=== PATIENT | male | born 1950 | race Hispanic/Latino ===

== ENCOUNTER 2018-09-08 07:12 | Outpatient (CLI) | payer MEDICARE ==
[2018-09-08 08:17] LABS: Estimated GFR-MDRD - POC Greater than 90
[2018-09-08] MEDS ORDERED: Gadobenate Dimeglumine 529 MG/1 ML (20ML VIAL) ONE (10:52)
--- NOTE | 2018-09-09 09:44 | MRI ---
MRI OF THE ABDOMEN WITH AND WITHOUT IV CONTRAST: INDICATION: Abnormal liver function tests with occasional abdominal pain. TECHNIQUE: Multiplanar, multisequence MR images were obtained of the abdomen utilizing a liver mass protocol. 1 6 cc of MultiHance were utilized for the examination. Comparisons are made with the prior CT of the abdomen and pelvis performed at [facility] dated 01/30/2013 and a prior MRI of the abdomen wi th and without contrast from [facility] dated 03/03/2013. FINDINGS: Again seen is a cirrhotic morphology of the liver. There is worsening splenomegaly to 24 cm in its g reatest craniocaudad length. There is worsening ascites seen throughout the abdominal cavity. There is recanalization of the umbilical vein. No suspicious arterial enhancing lesion is seen within the liver to suggest the presence of a malignancy. There is an eccentric focal filling defect seen with in the main portal vein on the delayed phase images on image 2034 of series 2, image 3034 of series 1 2 suspicious for partial portal vein thrombosis. There is a new small subcentimeter T2 hyperintensit y seen within he pancreatic head without associated enhancement suggestive for a small cyst. There a re small cysts seen within both kidneys. There are splenic, perisplenic, upper retroperitoneal, and periesophageal varicosities present. No bone marrow signal abnormality is evident. IMPRESSION: 1. Findings of cirrhosis with worsening portal hypertension and ascites. 2. There is a new focal filling defect seen within the main portal vein suspicious for a small eccen tric partial portal vein thrombus. 3. Bilateral renal cysts. 4. Interval development of a small T2 hyperintensity involving the pancreatic head without appreciab le enhancement suspicious for a small pancreatic cyst. 5. Heterogeneous enhancement seen within the retroperitoneum and portions of the omentum and paraeso phageal region suspicious for worsening portal hypertension and development of collateral venous drai nage. No large amount of abnormal T2 signal is seen within this region to suggest retroperitoneal ed taran from an gentility such as pancreatitis. POS: [facility]
== END 2018-09-08 07:13 | disposition home or self-care (01) ==
LOC: BICMRI 07:12
DX: R79.89 Other specified abnormal findings of blood chemistry (principal); K74.60 Unspecified cirrhosis of liver; K76.6 Portal hypertension; R18.8 Other ascites; N28.1 Cyst of kidney, acquired; R93.3 Abnormal findings on diagnostic imaging of other parts of digestive tract
CPT/HCPCS: 74183; 82565; A9579

== ENCOUNTER 2019-07-20 20:55 | Emergency (ER) | payer MEDICARE, OTHER ==
[~2019-07-20 20:55] MED LIST: ISOVUE-370 76%-LOCM 1 ML ONE
[2019-07-20 21:39] LABS: #Lymphocytes 0.4 thou/uL (1.20-3.40); #Monocytes 0.4 thou/uL (0.11-0.59); #Neutrophils 4.2 thou/uL (1.40-6.50); %Basophils 0.2 % (0.0-1.0); %Eosinophils 0.8 % (0.0-10.0); %Lymphocytes 8.6 % (21.0-51.0); %Monocytes 8.2 % (0.0-10.0); %Neutrophils 82.1 % (42.0-75.0); Hemoglobin 11.6 g/dL (14.0-18.0); Mean Corpuscular HGB CONC 34.5 g/dL (32.0-36.0); Mean Corpuscular Hemoglobin 34.1 pg (27.0-31.0); Mean Corpuscular Volume 98.7 fL (78.0-98.0); Platelet Count 41 thou/uL (130-400); RBC Distribution Width 13.5 % (11.5-14.5); Red Blood Cell (RBC) Count 3.42 mill/uL (4.70-6.10); White Blood Cell (WBC) Count 5.1 thou/uL (4.8-10.8)
[2019-07-20 21:42] LABS: INR-International Normal Ratio 1.6; PTT 33.5 SEC (22.9-36.1); Prothrombin Time 18.5 SEC (12.0-14.7)
[2019-07-20] MEDS ORDERED: Lidocaine 1% w/Epinephrine 1:100K 20 ML VIAL ONE (21:49)
[2019-07-20 21:50] LABS: Bilirubin Negative (Negative); Blood, Urine Negative (Negative); Clarity Clear (Clear); Glucose, Urine (Dipstick) Normal (Negative); Leukocyte Negative Leu/uL (Negative); Nitrite Negative (Negative); Protein, Urine (Dipstick) 20 mg/dL (Neg-Trace)
[2019-07-20] MEDS ORDERED: cefTRIAXone\\ROCEPHIN 1 GM VIAL ONE (21:51)
[2019-07-20 21:58] LABS: ALT (SGPT) 26 U/L (8-55); AST (SGOT) 49 U/L (5-34); Albumin 2.5 g/dL (3.4-4.8); Alkaline Phosphatase 177 U/L (40-110); Anion Gap 10 mmol/L (10-20); BUN (Urea Nitrogen) 26 mg/dL (8.4-25.7); Bilirubin, Total 1.7 mg/dL (0.2-1.2); Calc. Creatinine Clearance 0 mL/min (70-130); Calcium 7.7 mg/dL (7.8-10.44); Carbon Dioxide 20 mmol/L (23-31); Chloride 106 mmol/L (98-107); Estimated GFR-MDRD 83; Globulin 2.7 g/dL (2.4-3.5); Glucose 111 mg/dL (80-115); Potassium 3.5 mmol/L (3.5-5.1); Protein, Total 5.2 g/dL (5.8-8.1); Sodium 132 mmol/L (136-145)
--- NOTE | 2019-07-20 22:00 | RAD ---
Exam: Chest one view HISTORY:Chest pain Comparison: 10/05/2015 FINDINGS: Lungs: Hypoinflated, with the shallow depth of inspiration limiting assessment Cardiac silhouette:Accentuated by shallow depth of inspiration and portable technique Pulmonary vessels: Prominent pulmonary vasculature Pleural Spaces: Clear Pneumothorax: None Osseous abnormalities: None of acuity. IMPRESSION: Prominent pulmonary vasculature which may be on the basis of fluid overload. Correlate cl inically.
--- NOTE | 2019-07-20 22:33 | CT ---
CT Brain WO Con: 07/20/2019 12:00 AM CLINICAL HISTORY: Altered mental status. COMPARISON: None. FINDINGS: Hemorrhage: None. Ventricular system: Normal in size and morphology for the patient's age. Cerebral parenchyma: Microvascular ischemic disease Midline shift: None. Mass: No mass effect. Calvarium: Normal. Visualized Paranasal sinuses: Clear. IMPRESSION: No acute intracranial abnormalities.
--- NOTE | 2019-07-20 22:41 | CT ---
EXAM: Abdomen and pelvic CT scan with contrast: HISTORY: Abdominal pain. Recent paracentesis COMPARISON: 01/30/2013 FINDINGS: Scattered volume loss and/or scarring of the imaged lung bases. Liver: Cirrhotic morphology Gallbladder: Layering cholelithiasis. Gallbladder wall prominence and hyperdensity. Pancreas: Unremarkable Spleen: There is splenomegaly. Adjacent the splenic hilum, there is abnormal hyperdensity which exten ds from splenic varices and tracks along the posterior splenic margin and there is additional perisplenic fluid. Given the high density and configuration, this is concerning for active bleeding, the exact source of which is difficult to discern. There is splenomegaly. Splenic varices are noted, indicating portal hypertension. Adrenal glands: Left adrenal gland is obscured by the above-described perisplenic hyperdensity. Right adrenal gland is unremarkable. Kidneys: Parenchymal hypodensity of the left kidney, anteriorly, too small to definitively characteri ze. No hydronephrosis. Bowel: There is diffuse wall prominence of the bowel which may be on the basis of a hypoproteinemic s alba due to cirrhosis. However, superimposed acute infectious/inflammatory or ischemic process cannot be excluded on the basis of this exam. Urinary Bladder: Decompressed, limiting assessment. Adenopathy: There are enlarged gastrohepatic and portacaval lymph nodes Free Air: No free air. Ascites: Moderate volume diffuse ascites of the abdomen and pelvis. Generalized subcutaneous edema. Osseous structures: No acute osseous abnormalities. IMPRESSION: Abnormal hyperdensity extending from the region of the vasculature of the left abdomen adjacent splen ic varices within the left upper quadrant, and tracking along the posterior margin of the spleen. Active bleeding, the source of which is not definitively discerned, is the diagnosis of exclusion. Cirrhosis and portal hypertension Cholelithiasis Diffuse bowel wall prominence, as above. Telephone call placed to patient's physician in the ER, Dr. Baeza, at 2230 hours. Transcribed Date/Time: 07/20/2019 11:40 PM
[2019-07-20] MEDS ORDERED: Octreotide Acetate 1,250 MCG in Sodium Chloride 0.9% 250 ML 250 ML IVPB SCH (23:15)
--- NOTE | 2019-07-22 13:22 | EKG ---
Test Reason : Blood Pressure : / mmHG Vent. Rate : 098 BPM Atrial Rate : 098 BPM P-R Int : 170 ms QRS Dur : 080 ms QT Int : 400 ms P-R-T Axes : 026 -07 033 degrees QTc Int : 510 ms Normal sinus rhythm Possible Lateral infarct , age undetermined Prolonged QT Abnormal ECG Confirmed by LISA KC ([id number]), makeup editor CASEY MARRERO ([id number]) on 07/22/2019 1:22:15 PM Referred By: Confirmed By:LISA KC
== END 2019-07-21 00:23 | disposition short-term general hospital (02) ==
LOC: ERS 20:55
DX: K91.870 Postprocedural hematoma of a digestive system organ or structure following a digestive system procedure (principal); K72.90 Hepatic failure, unspecified without coma; I83.90 Asymptomatic varicose veins of unspecified lower extremity; E11.9 Type 2 diabetes mellitus without complications; E78.5 Hyperlipidemia, unspecified; E78.00 Pure hypercholesterolemia, unspecified; I10 Essential (primary) hypertension; N40.0 Benign prostatic hyperplasia without lower urinary tract symptoms; Z79.899 Other long term (current) drug therapy
CPT/HCPCS: 36415; 51701; 70450; 71045; 74177; 80053; 81003; 82140; 83605; 84484; 85025; 85610; 85730; 86850; 86900; 86901; 87040; 87086; 93005; 96365; 96375; J0696; J2354; J7050; Q9966

== ENCOUNTER 2020-01-07 02:33 | Inpatient (IN) | payer MEDICARE, OTHER ==
[~2020-01-07 02:33] MED LIST changes: +Furosemide 40 MG TAB ONE; +Furosemide 40 MG/4 ML VIAL ONE; -ISOVUE-370 76%-LOCM 1 ML ONE
[2020-01-07 03:09] LABS: #Eosinphils 0.2 thou/uL (0.0-0.7); #Lymphocytes 0.6 thou/uL (1.20-3.40); #Monocytes 0.6 thou/uL (0.11-0.59); #Neutrophils 4.2 thou/uL (1.40-6.50); %Basophils 0.5 % (0.0-1.0); %Eosinophils 3.9 % (0.0-10.0); %Lymphocytes 10.2 % (21.0-51.0); %Monocytes 10.2 % (0.0-10.0); %Neutrophils 75.2 % (42.0-75.0); Hemoglobin 12.5 g/dL (14.0-18.0); Mean Corpuscular HGB CONC 34.3 g/dL (32.0-36.0); Mean Corpuscular Hemoglobin 35.2 pg (27.0-31.0); Mean Platelet Volume 9.7 fL (7.4-10.4); Platelet Count 40 thou/uL (130-400); RBC Distribution Width 14.2 % (11.5-14.5); Red Blood Cell (RBC) Count 3.56 mill/uL (4.70-6.10); White Blood Cell (WBC) Count 5.6 thou/uL (4.8-10.8)
[2020-01-07 03:14] LABS: Actual Bicarbonate (HCO3a) 17.9 mEq/L (22-28); Analyzer IN Cardio ER; Base Excess (BEa) -5.4 mEq/L (-2.0 to +3.0); CO2 Tension 28.6 mmHg (35.0-45.0); Calcium, Ionized 1.13 mmol/L (1.12-1.30); Carboxyhemoglobin (COHb) 0.2 gm% (0.0-3.0); O2 Tension (PaO2) 73.3 mmHg (> 80.0); Potassium - ABG Lab 3.68 mmol/L (3.70-5.30); pH, Arterial 7.41 (7.35-7.45)
[2020-01-07 03:14] LABS: INR-International Normal Ratio 1.4; Prothrombin Time 17.3 SEC (12.0-14.7)
[2020-01-07 03:15] LABS: Puncture Site LBA
[2020-01-07] MEDS ORDERED: Cefepime 2 GM VIAL ONE (03:26)
[2020-01-07 03:29] LABS: ALT (SGPT) 30 U/L (8-55); AST (SGOT) 69 U/L (5-34); Albumin 2.4 g/dL (3.4-4.8); Alkaline Phosphatase 165 U/L (40-110); Anion Gap 12 mmol/L (10-20); BUN (Urea Nitrogen) 25 mg/dL (8.4-25.7); Bilirubin, Total 1.9 mg/dL (0.2-1.2); Calc. Creatinine Clearance 0 mL/min (70-130); Calcium 7.9 mg/dL (7.8-10.44); Carbon Dioxide 19 mmol/L (23-31); Chloride 111 mmol/L (98-107); Estimated GFR-MDRD Greater than 90; Globulin 3.2 g/dL (2.4-3.5); Glucose 103 mg/dL (80-115); Lipase 79 U/L (8-78); Potassium 3.8 mmol/L (3.5-5.1); Protein, Total 5.6 g/dL (5.8-8.1); Sodium 138 mmol/L (136-145)
[2020-01-07] MEDS ORDERED: Cefepime 2 GM in Sodium Chloride 0.9% 100 ML IVPB SCH (03:30)
[2020-01-07] MEDS ORDERED: Vancomycin HCl 1.75 GM in Sodium Chloride 0.9% 500 ML IVPB SCH (03:30)
[2020-01-07 03:42] LABS: Bacteria/HPF None Seen HPF (None Seen); Bilirubin Negative (Negative); Blood, Urine Negative (Negative); Clarity Clear (Clear); Glucose, Urine (Dipstick) Normal (Negative); Leukocyte 25 Leu/uL (Negative); Nitrite Negative (Negative); Protein, Urine (Dipstick) Negative (Neg-Trace); RBC/HPF 0-3 HPF (0-3); Squamous Epithelial None Seen HPF (0-3); Urobilinogen Normal mg/dL (Less than 2); WBC/HPF 0-3 HPF (0-3)
[2020-01-07] MEDS ORDERED: Ondansetron PF 4 MG/2 ML Vial IVP PRN ×2 (04:18→08:31)
[2020-01-07] MEDS ORDERED: cefTRIAXone\\ROCEPHIN 1 GM in Sodium Chloride 0.9% 100 ML IVPB SCH ×2 (05:00→08:45)
--- NOTE | 2020-01-07 05:26 | HP ---
CHIEF COMPLAINT: Shortness of breath. HISTORY OF PRESENT ILLNESS: Mr. Booth is a 69-year-old male with past medical history of liver cirrhosis, presented to the emergency room with shortness of breath that got worse today. The patient had also recent weight gain, significant. Also, he noted swelling and edema of abdomen and extremities. Denies fever or chills. Initial workup in the emergency room, the patient was in respiratory distress, chest x-ray shows right hemithorax opacity/pleural effusion. Also, clinically, the patient has significant ascites. CT imaging of the abdomen and chest is being done at the time of this dictation. Results are still pending. The patient is going to be admitted to the hospital for further management. PAST MEDICAL HISTORY: 1. Liver cirrhosis. 2. Diabetes, type 2. 3. Hyperlipidemia. 4. Hypertension. 5. Enlarged prostate. PAST SURGICAL HISTORY: Hernia repair. PAST PSYCHIATRIC HISTORY: None. SOCIAL HISTORY: Denies alcohol use. The patient denies drug use. Denies smoking. FAMILY HISTORY: Reviewed and noncontributory. HOME MEDICATIONS: Please see home medication reconciliation form for updated medications. ALLERGIES: NO KNOWN ALLERGIES. REVIEW OF SYSTEMS: Review of 14 systems negative except what is mentioned in history of present illness. PHYSICAL EXAMINATION: GENERAL: The patient is awake, alert, in moderate respiratory distress. VITAL SIGNS: Blood pressure is 115/70, pulse is 116, respiratory rate is 28, temperature is 98.2, and oxygen saturation is 99% on 3 L/minute nasal cannula. HEAD AND NECK: Normocephalic, atraumatic. Neck is supple. No JVD. CHEST: Decreased air entry. Right chest with dullness to percussion. HEART: S1, S2. Regular. ABDOMEN: Soft, diffusely tender with shifting dullness. Positive bowel sounds present. NEUROLOGIC: Awake, alert, oriented x3. PSYCH: Unable to assess. EXTREMITIES: Positive for edema. No clubbing, no cyanosis. GENITOURINARY: No suprapubic tenderness. No flank tenderness. LABORATORY DATA: Lipase is 79. Sodium is 138, potassium is 3.8, bilirubin is 1.9, albumin 2.4. Alkaline phosphatase 165, AST is 69, ALT is 30. Lactic acid is 1.7. Ammonia is 42. INR is 1.4. ABG; pH 7.41, PaCO2 is 28, PaO2 is 73. WBC count 5.6, hemoglobin 12.5, platelets 140. ASSESSMENT: 1. Acute dyspnea, probably secondary to ascites and pleural effusion. 2. Ascites. 3. Pleural effusion, right-sided. 4. Liver cirrhosis. 5. Diabetes mellitus, type 2. 6. Hypertension. 7. Hyperlipidemia. PLAN: 1. Admit. 2. CT abdomen and chest being done, to follow the results. 3. Consult Interventional Radiology for ultrasound guided paracentesis. 4. Consider also Pulmonary consultation for chest x-ray findings. The patient also may need thoracentesis. 5. The patient was given IV Lasix, we will continue diuresis. 6. Reconcile home medications. 7. DVT prophylaxis as appropriate. 8. Expected length of stay, 2 midnights or more. Job ID: [id number]
[2020-01-07 05:29] VITALS: BMI 31.4
[2020-01-07] MEDS ORDERED: Spironolactone 100 MG TAB PO SCH ×2 (08:00→08:45)
--- NOTE | 2020-01-07 08:00 | CT ---
PRELIMINARY REPORT/[facility]/EMERGENCY AFTER HOURS PROCEDURE: History: SOB, history of cirrhosis and weight gain. CT chest, abdomen and pelvis with 100 cc Isovue-370 IV contrast. Comparison: None. Findings: The thoracic aorta is intact without aneurysm or dissection. The heart is not significantl y enlarged. Small pericardial effusion. Marked bilateral gynecomastia. There is a very large right-sided pleural effusion with near complete atelectasis of the right lung. Patchy groundglass airspace opacities seen in the left upper lobe. Small cirrhotic liver. The portal vein is distended. The spleen is enlarged. There is a linear hyp odensity in the inferior spleen extending to the capsular surface measuring about 2.8 cm in length. Layering calcified gallstones. The pancreas, adrenal glands and kidneys are unremarkable. There may be small gastroesophageal varices. The stomach is otherwise unremarkable. Mild mural thic kening of loops of small bowel which are minimally distended. No evidence of small bowel obstruction. The appendix is not inflamed. There is mild mural thickening of the ascending colon. Perirectal varices are noted. Large volume ascites. No free air. The prostate is moderately enlarged. The bladder is unremarkable. The abdominal aorta is intact. O steopenia with degenerative changes of the spine and SI joints. Diffuse subcutaneous anasarca, more pronounced on the right. L5 pars defects with anterolisthesis of L5 on S1. Impression: 1. Cirrhotic changes of the liver with sequelae of portal hypertension including splenomegaly, ascit es, portosystemic varices and subcutaneous anasarca. 2. Very large right pleural effusion consistent with hepatic hydrothorax. Near complete atelectasis of the right lung. 3. Patchy groundglass airspace disease in the left upper lobe is nonspecific but could be infectious in the appropriate clinical setting. 4. Cholelithiasis. 5. 2.8 cm linear hypodensity in the inferior spleen. If there is a history of trauma, process such as a small laceration of indeterminate age is not excluded. 6. Chronic findings as above. ELECTRONICALLY SIGNED BY: Osman Wyatt MD Jan 07, 2020 5:19:23 AM CDT FINAL REPORT CT CHEST WITH IV CONTRAST CT ABDOMEN AND PELVIS WITH IV CONTRAST: DATE: 01/07/2020. TIME: Performed on an emergency basis at 0403 hours. HISTORY: Dyspnea. Chest and abdomen pain. COMPARISON: 07/20/2019. FINDINGS: Agree with the preliminary report by Dr. Wyatt from [facility]. Large amount right pleural flui d with near complete collapse of the right lung. Slight leftward shift of the mediastinum. Cirrhosis with findings of portal venous hypertension. The ill-defined area of increased density to t he medial aspect of the upper spleen is unchanged in appearance and is of uncertain etiology. A new somewhat ill-defined linear, coronally oriented hypodensity across the inferior margin of the spleen was not present on the prior study. In the appropriate clinical setting, it could represent a laceration, although the clinical history does not well correlate for such. Cholelithiasis confirmed. Transcribed Date/Time: 01/07/2020 8:31 AM
[2020-01-07] MEDS: Famotidine/PF 20 mg/2ml Vial SLOW IVP SCH ×2 (08:48→20:09)
[2020-01-07] MEDS: Furosemide 40 MG/4 ML VIAL SLOW IVP SCH (08:48)
[2020-01-07] MEDS ORDERED: Famotidine/PF 20 mg/2ml Vial SLOW IVP SCH (09:00)
[2020-01-07] MEDS ORDERED: Furosemide 40 MG/4 ML VIAL SLOW IVP SCH (09:00)
--- NOTE | 2020-01-07 09:14 | RAD ---
PORTABLE CHEST: DATE: 01/07/2020. PROVIDED CLINICAL HISTORY: Shortness of breath. FINDINGS: Comparison 07/20/2019. Interval development of opacification of essentially the entire right hemitho rax with some aerated lung involving the right upper lung zone present. The left lung appears clear. There is no shift of the mediastinal contents. There is no evidence for pneumothorax. Heart size appears grossly normal. IMPRESSION: Opacification of the majority of the right hemithorax. Correlate with subsequently performed CT exam ination. POS: [facility]
--- NOTE | 2020-01-07 11:39 | RAD ---
Chest one view HISTORY: Chest pain. Dyspnea. Thoracentesis. COMPARISON: Earlier exam on the same date. FINDINGS: Right pleural fluid has markedly decreased, consistent with interval thoracentesis. Right l ower lobe remains incompletely inflated. Mediastinum is now midline. Left lung well-inflated. Cardiac silhouette and pulmonary vasculature are unremarkable. IMPRESSION : Interval right thoracentesis with near complete reexpansion of the right lower lobe. No evidence of c omplication.
--- NOTE | 2020-01-07 12:19 | ULT ---
Sonographic guided right thoracentesis HISTORY: Pleural effusion. FINDINGS: After explaining the procedure and answering all questions, sonographic survey shows a larg e amount of free fluid within the right hemithorax. Sterile technique, local anesthesia, sonographic guidance, and a posterior approach were used to care fully advance a 19-gauge Yueh needle and catheter into the free fluid. Catheter was left to drain a total volume of 3.0 L cloudy yellow liquid. Small amount of fluid remained. Catheter was removed. Pat ient tolerated the procedure well. IMPRESSION : Technically successful sonographic guided right thoracentesis.
[2020-01-07] MEDS ORDERED: Iopamidol 370 76% 50 ML VIAL FS ONE (13:27)
--- NOTE | 2020-01-07 13:29 | PDOC.HOSPP ---
- Subjective Encounter Date: 01/07/20 Encounter Time: 10:45 Subjective: is confused, sob+ - Objective Vital Signs & Weight: Vital Signs (12 hours) Temp Pulse Resp BP BP Pulse Ox 01/07/20 12:00 97.7 F 94 18 120/70 100 01/07/20 08:00 100 01/07/20 07:22 97.7 F 108 H 20 103/67 100 01/07/20 05:42 100 01/07/20 05:18 97.7 F 104 H 22 H 132/73 100 Weight Weight 195 lb Result Diagrams: 01/07/20 02:46 01/07/20 02:46 Hospitalist ROS - Medication Medications: Active Medications Generic Name Dose Route Start Last Admin Trade Name Freq PRN Reason Stop Dose Admin Famotidine 20 mg 01/07/20 09:00 01/07/20 08:48 Pepcid SLOW IVP 20 mg Q12HR QUETA Administration Furosemide 40 mg 01/07/20 09:00 01/07/20 08:48 Lasix SLOW IVP 40 mg DAILY QUETA Administration - Exam General Appearance: ill appearing Eye: PERRL, scleral icterus ENT: no oropharyngeal lesions, dry oral mucosa Neck: supple, no JVD Heart: RRR, no gallops Respiratory: no wheezes, no rales Respiratory - other findings: very little air entry on right side Gastrointestinal: soft, normal bowel sounds, distended Gastrointestinal - other findings: ascites+++ Extremities: no cyanosis, 2+ LE edema Neurological: cranial nerve grossly intact, no focal deficits Hosp A/P (1) Pleural effusion, right Code(s): J90 - PLEURAL EFFUSION, NOT ELSEWHERE CLASSIFIED Status: Acute (2) Ascites Code(s): R18.8 - OTHER ASCITES Status: Chronic Qualifiers: Ascites type: other type Qualified Code(s): R18.8 - Other ascites (3) Acute hepatic encephalopathy Code(s): K72.00 - ACUTE AND SUBACUTE HEPATIC FAILURE WITHOUT COMA Status: Acute (4) DM type 2 (diabetes mellitus, type 2) Status: Chronic Qualifiers: Diabetes mellitus exterminator termite insulin use: without exterminator termite use (5) Non-alcoholic cirrhosis Status: Chronic (6) BPH (benign prostatic hyperplasia) Code(s): N40.0 - BENIGN PROSTATIC HYPERPLASIA WITHOUT LOWER URINRY TRACT SYMP Status: Chronic Qualifiers: Lower urinary tract symptom presence: symptoms absent Qualified Code(s): N40.0 - Benign prostatic hyperplasia without lower urinary tract symptoms (7) HLD (hyperlipidemia) Code(s): E78.5 - HYPERLIPIDEMIA, UNSPECIFIED Status: Chronic Qualifiers: Hyperlipidemia type: unspecified Qualified Code(s): E78.5 - Hyperlipidemia , unspecified (8) HTN (hypertension) Code(s): I10 - ESSENTIAL (PRIMARY) HYPERTENSION Status: Chronic Qualifiers: Hypertension type: essential hypertension Qualified Code(s): I10 - Essential (primary) hypertension (9) Thrombocytopenia Code(s): D69.6 - THROMBOCYTOPENIA, UNSPECIFIED Status: Chronic - Plan had thoracentesis on right side with removal of 3 liters fluid by IR, will cancel pulm consult is going for paracentesis in am poor prognosis with end stage liver disease code status was d/w family over phone, they want him to be full code start lactulose 20g q6h, spironolactone, empiric ceftriaxone, lasix will f/u
[2020-01-07] MEDS: Tamsulosin HCl 0.4 MG CAP PO SCH (20:08)
[2020-01-07] MEDS: Rifaximin 550 MG TAB PO SCH (20:08)
[2020-01-07] MEDS ORDERED: Prevnar 13-Val Conj/PF 0.5 ML SYRINGE IM ONE (21:00)
[2020-01-08] MEDS: cefTRIAXone\\ROCEPHIN 1 GM in Sodium Chloride 0.9% 100 ML IVPB SCH (05:12)
[2020-01-08] MEDS: Ferrous Sulfate 325 MG TAB PO SCH (09:36)
[2020-01-08] MEDS: Famotidine/PF 20 mg/2ml Vial SLOW IVP SCH ×2 (09:36→21:36)
[2020-01-08] MEDS: Finasteride 5 MG TAB PO SCH (09:36)
[2020-01-08] MEDS: Furosemide 40 MG/4 ML VIAL SLOW IVP SCH (09:36)
[2020-01-08] MEDS: Rifaximin 550 MG TAB PO SCH ×2 (09:36→21:36)
[2020-01-08] MEDS: Tamsulosin HCl 0.4 MG CAP PO SCH ×2 (09:36→21:36)
[2020-01-08] MEDS: Spironolactone 100 MG TAB PO SCH (09:37)
[2020-01-08] MEDS ORDERED: Sodium Bicarbonate 2.5 MEQ/5 ML VIAL ONE (11:41)
--- NOTE | 2020-01-08 12:17 | ULT ---
Ultrasound-guided paracentesis: HISTORY: Cirrhosis and recurrent ascites. FINDINGS: Informed consent obtained prior to the procedure. Preprocedural imaging demonstrated intrap eritoneal free fluid. An area was marked in the right lower quadrant in the mid axillary line, and then meticulously preppe d and draped in normal sterile fashion and anesthetized with 1% buffered lidocaine. With direct sonographic guidance, a 19-gauge needle and 5 [employer] catheter were advanced into the abdomen. After the return of fluid, the catheter was advanced, and the needle was removed. Approximately 2 L of clear straw-colored fluid was aspirated. The introducer sheath was removed, and hemostasis was achieved with direct pressure. A dry sterile dressing was placed. The patient tolerated the procedure well and without immediate complication. IMPRESSION: Technically successful ultrasound-guided paracentesis.
--- NOTE | 2020-01-08 12:48 | PDOC.HOSPP ---
- Subjective Encounter Date: 01/08/20 Subjective: Tolerated paracentsis. No new complains. - Objective Vital Signs & Weight: Vital Signs (12 hours) Temp Pulse Resp BP BP Pulse Ox 01/08/20 07:37 98.2 F 96 20 100/61 97 01/08/20 04:38 98.1 F 101 H 18 110/62 95 Weight Weight 195 lb Result Diagrams: 01/07/20 02:46 01/07/20 02:46 Hospitalist ROS - Medication Medications: Active Medications Generic Name Dose Route Start Last Admin Trade Name Jeremyq PRN Reason Stop Dose Admin Famotidine 20 mg 01/07/20 09:00 01/08/20 09:36 Pepcid SLOW IVP 20 mg Q12HR QUETA Administration Ferrous Sulfate 325 mg 01/08/20 09:00 01/08/20 09:36 Feosol PO 325 mg DAILY QUETA Administration Finasteride 5 mg 01/08/20 09:00 01/08/20 09:36 Proscar PO 5 mg DAILY QUETA Administration Furosemide 40 mg 01/07/20 09:00 01/08/20 09:36 Lasix SLOW IVP 40 mg DAILY QUETA Administration Ceftriaxone Sodium 1 gm/ 100 mls @ 200 mls/hr 01/08/20 06:00 01/08/20 05:12 Sodium Chloride IVPB 100 mls 0600 QUETA Administration Lactulose 20 gm 01/07/20 21:00 01/08/20 09:35 Lactulose PO 20 gm TID QUETA Administration Rifaximin 550 mg 01/07/20 21:00 01/08/20 09:36 Xifaxan PO 550 mg BID QUETA Administration Spironolactone 100 mg 01/08/20 08:00 01/08/20 09:37 Aldactone PO 100 mg Q24HR QUETA Administration Tamsulosin HCl 0.4 mg 01/07/20 21:00 01/08/20 09:36 Flomax PO 0.4 mg BID QUETA Administration - Exam General Appearance: awake alert ENT: normocephalic atraumatic Neck: supple, no JVD Heart: RRR, no murmur Respiratory: CTAB Gastrointestinal: soft, non-tender, distended Neurological: cranial nerve grossly intact, no weakness Psychiatric: A&O x 3 Hosp A/P (1) Pleural effusion, right Code(s): J90 - PLEURAL EFFUSION, NOT ELSEWHERE CLASSIFIED Status: Acute (2) Ascites Code(s): R18.8 - OTHER ASCITES Status: Chronic Qualifiers: Ascites type: other type Qualified Code(s): R18.8 - Other ascites (3) Non-alcoholic cirrhosis Status: Chronic - Plan S/P paracentesis with removal of 2L of straw colored fluid. Feels better. No indication for albumin infusion. Continue lasix and spironolactone. Likely DC tomorrow. Blood culture positive for Coag negative staph in one bottle. Likely contamination.
[2020-01-09] MEDS: cefTRIAXone\\ROCEPHIN 1 GM in Sodium Chloride 0.9% 100 ML IVPB SCH (05:55)
[2020-01-09] MEDS: Rifaximin 550 MG TAB PO SCH ×2 (08:10→21:54)
[2020-01-09] MEDS: Tamsulosin HCl 0.4 MG CAP PO SCH ×2 (08:10→21:54)
[2020-01-09] MEDS: Famotidine/PF 20 mg/2ml Vial SLOW IVP SCH ×2 (08:10→21:55)
[2020-01-09] MEDS: Finasteride 5 MG TAB PO SCH (08:10)
[2020-01-09] MEDS: Furosemide 40 MG/4 ML VIAL SLOW IVP SCH (08:10)
[2020-01-09] MEDS: Ferrous Sulfate 325 MG TAB PO SCH (08:10)
[2020-01-09] MEDS: Spironolactone 100 MG TAB PO SCH (08:20)
--- NOTE | 2020-01-09 21:46 | PDOC.HOSPP ---
- Subjective Encounter Date: 01/09/20 Subjective: Denies any new complains. More straw colored fluid in the drain bag. - Objective Vital Signs & Weight: Vital Signs (12 hours) Temp Pulse Resp BP BP Pulse Ox 01/09/20 19:47 97.6 F 80 16 106/60 97 01/09/20 12:50 97.8 F 92 18 109/68 98 Weight Weight 195 lb I&O: 01/08/20 01/09/20 01/10/20 06:59 06:59 06:59 Intake Total 720 Balance 720 Result Diagrams: 01/07/20 02:46 01/07/20 02:46 Hospitalist ROS - Medication Medications: Active Medications Generic Name Dose Route Start Last Admin Trade Name Freq PRN Reason Stop Dose Admin Famotidine 20 mg 01/07/20 09:00 01/09/20 08:10 Pepcid SLOW IVP 20 mg Q12HR QUETA Administration Ferrous Sulfate 325 mg 01/08/20 09:00 01/09/20 08:10 Feosol PO 325 mg DAILY QUETA Administration Finasteride 5 mg 01/08/20 09:00 01/09/20 08:10 Proscar PO 5 mg DAILY QUETA Administration Furosemide 40 mg 01/07/20 09:00 01/09/20 08:10 Lasix SLOW IVP 40 mg DAILY QUETA Administration Ceftriaxone Sodium 1 gm/ 100 mls @ 200 mls/hr 01/08/20 06:00 01/09/20 05:55 Sodium Chloride IVPB 100 mls 0600 QUETA Administration Lactulose 20 gm 01/07/20 21:00 01/09/20 14:28 Lactulose PO 20 gm TID QUETA Administration Rifaximin 550 mg 01/07/20 21:00 01/09/20 08:10 Xifaxan PO 550 mg BID QUETA Administration Spironolactone 100 mg 01/08/20 08:00 01/09/20 08:20 Aldactone PO 100 mg Q24HR QUETA Administration Tamsulosin HCl 0.4 mg 01/07/20 21:00 01/09/20 08:10 Flomax PO 0.4 mg BID QUETA Administration - Exam General Appearance: awake alert ENT: normocephalic atraumatic Neck: supple, no JVD Heart: RRR, no murmur, no gallops Respiratory: CTAB Gastrointestinal: soft, non-tender, normal bowel sounds, distended Hosp A/P (1) Pleural effusion, right Code(s): J90 - PLEURAL EFFUSION, NOT ELSEWHERE CLASSIFIED Status: Acute (2) Ascites Code(s): R18.8 - OTHER ASCITES Status: Chronic Qualifiers: Ascites type: other type Qualified Code(s): R18.8 - Other ascites (3) Non-alcoholic cirrhosis Status: Chronic - Plan S/P paracentesis with removal of 2L of straw colored fluid. Feels better. [place] 50 gm of albumin. Continue lasix and spironolactone. Blood culture positive for Coag negative staph in one bottle. Likely contamination.
[2020-01-09] MEDS ORDERED: Albumin 25% 25 GM/100 ML BOT IVPB SCH (22:00)
[2020-01-10] MEDS: cefTRIAXone\\ROCEPHIN 1 GM in Sodium Chloride 0.9% 100 ML IVPB SCH (05:21)
[2020-01-10] MEDS: Famotidine/PF 20 mg/2ml Vial SLOW IVP SCH (07:47)
[2020-01-10] MEDS: Furosemide 40 MG/4 ML VIAL SLOW IVP SCH (07:48)
[2020-01-10] MEDS: Finasteride 5 MG TAB PO SCH (07:48)
[2020-01-10] MEDS: Ferrous Sulfate 325 MG TAB PO SCH (07:48)
[2020-01-10] MEDS: Tamsulosin HCl 0.4 MG CAP PO SCH (07:48)
[2020-01-10] MEDS: Rifaximin 550 MG TAB PO SCH (07:48)
[2020-01-10] MEDS: Spironolactone 100 MG TAB PO SCH (07:49)
--- NOTE | 2020-01-10 13:43 | EKG ---
Test Reason : Blood Pressure : / mmHG Vent. Rate : 114 BPM Atrial Rate : 114 BPM P-R Int : 000 ms QRS Dur : 068 ms QT Int : 340 ms P-R-T Axes : -18 -26 005 degrees QTc Int : 468 ms Sinus tachycardia Low voltage QRS Inferior infarct , age undetermined Abnormal ECG Confirmed by EVELYNE WICK ([id number]), editorial clerk CAROLE CINTRON ([id number]) on 01/10/2020 1:42:49 PM Referred By: MARY Confirmed By:EVELYNE WICK
[2020-01-10 16:25] VITALS: BP 115/70; TEMP 97.3
--- NOTE | 2020-01-10 16:53 | DIS ---
DATE OF ADMISSION: 01/07/2020 DATE OF DISCHARGE: 01/10/2020 DISCHARGE DIAGNOSES: 1. Ascites. 2. Nonalcoholic liver cirrhosis. 3. Right pleural effusion. DISCHARGE MEDICATIONS: 1. Ferrous sulfate 325 mg orally daily. 2. Finasteride 5 mg orally daily. 3. Rifaximin 550 mg orally twice daily. 4. Flomax 0.4 mg orally twice daily. 5. Amiloride 5 mg orally daily. 6. Aspirin 81 mg orally daily. 7. Flexeril 5 mg orally 3 times a day. 8. Furosemide 80 mg orally daily and 40 mg orally nightly. 9. Lactulose 45 mL orally 3 times a day. 10. Zofran 8 mg orally t.i.d. as needed for nausea and vomiting. 11. Aldactone 200 mg orally daily. 12. Protonix 40 mg orally twice daily. 13. Tizanidine 4 mg orally twice daily for muscle spasms. HISTORY OF PRESENT ILLNESS AND HOSPITAL COURSE: The patient is a 69-year-old male with past medical history of liver cirrhosis; diabetes, type 2; hyperlipidemia; hypertension; and benign prostatic hyperplasia, who presented to the hospital with shortness of breath, abdominal distention, and weight gain. Chest x-ray revealed right pleural effusion, and CT scan of the abdomen revealed presence of ascites. The patient underwent ultrasound-guided thoracentesis with removal of 3 L of transudative fluid and subsequently underwent ultrasound-guided paracentesis, where 2 L of straw-colored fluid was removed. Peritoneal drain was left in place, and the patient was indicated about emptying the fluid and managing the drain. The patient's symptoms improved, and he has been hemodynamically stable for 24 hours prior to discharge. Job ID: [id number]
== END 2020-01-10 16:27 | disposition home or self-care (01) | DRG 433 ==
LOC: ERS 02:33 → T4-A 04:22 → ERS 05:00
PROVIDERS: ADMIT Internal Medicine; ATTEND Internal Medicine
PROC: 0W993ZZ Drainage of Right Pleural Cavity, Percutaneous Approach (ICD-10-PCS; principal; 2020-01-07)
PROC: BB4BZZZ Ultrasonography of Pleura (ICD-10-PCS; 2020-01-07)
PROC: 0W9G3ZZ Drainage of Peritoneal Cavity, Percutaneous Approach (ICD-10-PCS; 2020-01-08)
PROC: BF4CZZZ Ultrasonography of Hepatobiliary System, All (ICD-10-PCS; 2020-01-08)
DX: K74.60 Unspecified cirrhosis of liver (principal); R18.8 Other ascites; J90 Pleural effusion, not elsewhere classified; E11.9 Type 2 diabetes mellitus without complications; N40.0 Benign prostatic hyperplasia without lower urinary tract symptoms; I10 Essential (primary) hypertension; E78.5 Hyperlipidemia, unspecified; D69.6 Thrombocytopenia, unspecified; E78.00 Pure hypercholesterolemia, unspecified; Z79.4 Long term (current) use of insulin
CPT/HCPCS: 49083; 71045; 71260; 74177; 76942; 80053; 81003; 81015; 82140; 82805; 83605; 83690; 83880; 84484; 85025; 85610; 87040; 87086; 87149; 93005; J0692; J0696; J1940; J3370; J3490; J7050; P9047; Q9967; S0028

== ENCOUNTER 2020-01-23 19:11 | Emergency (ER) | payer MEDICARE, OTHER ==
[2020-01-23] MEDS ORDERED: Aspirin Chewable 81 MG TAB ONE (19:46)
[2020-01-23] MEDS ORDERED: Nitroglycerin 2% Ointment 1 INCH/1 GM Packet ONE (19:46)
[2020-01-23 19:49] LABS: #Eosinphils 0.2 thou/uL (0.0-0.7); #Lymphocytes 0.5 thou/uL (1.20-3.40); #Monocytes 0.4 thou/uL (0.11-0.59); #Neutrophils 4.2 thou/uL (1.40-6.50); %Basophils 0.3 % (0.0-1.0); %Eosinophils 3.3 % (0.0-10.0); %Lymphocytes 8.9 % (21.0-51.0); %Monocytes 8.1 % (0.0-10.0); %Neutrophils 79.5 % (42.0-75.0); Hemoglobin 12.4 g/dL (14.0-18.0); Mean Corpuscular HGB CONC 33.8 g/dL (32.0-36.0); Mean Corpuscular Hemoglobin 35.5 pg (27.0-31.0); Mean Platelet Volume 8.8 fL (7.4-10.4); Platelet Count 54 thou/uL (130-400); RBC Distribution Width 13.8 % (11.5-14.5); Red Blood Cell (RBC) Count 3.49 mill/uL (4.70-6.10); White Blood Cell (WBC) Count 5.3 thou/uL (4.8-10.8)
[2020-01-23 20:07] LABS: ALT (SGPT) 54 U/L (8-55); AST (SGOT) 109 U/L (5-34); Albumin 2.7 g/dL (3.4-4.8); Alkaline Phosphatase 288 U/L (40-110); Anion Gap 12 mmol/L (10-20); BUN (Urea Nitrogen) 24 mg/dL (8.4-25.7); Bilirubin, Total 1.9 mg/dL (0.2-1.2); Calc. Creatinine Clearance 0 mL/min (70-130); Calcium 8.3 mg/dL (7.8-10.44); Carbon Dioxide 20 mmol/L (23-31); Chloride 109 mmol/L (98-107); Estimated GFR-MDRD Greater than 90; Globulin 3.2 g/dL (2.4-3.5); Glucose 101 mg/dL (80-115); Potassium 4.8 mmol/L (3.5-5.1); Protein, Total 5.9 g/dL (5.8-8.1); Sodium 136 mmol/L (136-145)
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
--- NOTE | 2020-01-26 14:08 | EKG ---
Test Reason : CP Blood Pressure : / mmHG Vent. Rate : 098 BPM Atrial Rate : 098 BPM P-R Int : 166 ms QRS Dur : 074 ms QT Int : 364 ms P-R-T Axes : 016 -16 017 degrees QTc Int : 464 ms Normal sinus rhythm Low voltage QRS Borderline ECG Confirmed by DEISI GIANG ([id number]), city editor CAROLE CINTRON ([id number]) on 01/26/2020 2:08:02 PM Referred By: Confirmed By:DEISI GIANG
== END 2020-01-23 21:12 | disposition home or self-care (01) ==
LOC: ERS 19:11
DX: R07.9 Chest pain, unspecified (principal); R60.0 Localized edema; R79.89 Other specified abnormal findings of blood chemistry; E11.9 Type 2 diabetes mellitus without complications; E78.5 Hyperlipidemia, unspecified; E78.00 Pure hypercholesterolemia, unspecified; I10 Essential (primary) hypertension; N40.0 Benign prostatic hyperplasia without lower urinary tract symptoms; V59.9XXA Occupant (driver) (passenger) of pick-up truck or van injured in unspecified traffic accident, initial encounter
CPT/HCPCS: 71045; 80053; 84484; 85025; 93005

== ENCOUNTER 2020-02-19 20:16 | Emergency (ER) | payer MEDICARE, OTHER ==
[~2020-02-19 20:16] MED LIST changes: -Furosemide 40 MG TAB ONE; -Furosemide 40 MG/4 ML VIAL ONE; +Iopamidol-370 76% 500 ML 1 ML ONE
--- NOTE | 2020-02-19 21:24 | RAD ---
Exam: Chest one view HISTORY:Chest pain. Shortness of breath. Comparison: 01/23/2020 FINDINGS: Cardiac silhouette: Normal Aorta: Atherosclerosis Pulmonary vessels: Normal Costophrenic angles: Clear LUNGS: Diminished lung volumes. Chronic lung parenchymal changes. Pneumothorax: None Osseous abnormalities: None IMPRESSION: No acute cardiopulmonary process.
[2020-02-19 21:32] LABS: #Eosinphils 0.1 thou/uL (0.0-0.7); #Lymphocytes 0.3 thou/uL (1.20-3.40); #Monocytes 0.4 thou/uL (0.11-0.59); #Neutrophils 5.1 thou/uL (1.40-6.50); %Basophils 0.2 % (0.0-1.0); %Lymphocytes 4.4 % (21.0-51.0); %Monocytes 6.2 % (0.0-10.0); %Neutrophils 88.2 % (42.0-75.0); Hemoglobin 11.1 g/dL (14.0-18.0); Mean Corpuscular HGB CONC 33.8 g/dL (32.0-36.0); Mean Corpuscular Hemoglobin 35.3 pg (27.0-31.0); Mean Platelet Volume 7.9 fL (7.4-10.4); Platelet Count 40 thou/uL (130-400); RBC Distribution Width 14.9 % (11.5-14.5); Red Blood Cell (RBC) Count 3.13 mill/uL (4.70-6.10); White Blood Cell (WBC) Count 5.8 thou/uL (4.8-10.8)
[2020-02-19 21:51] LABS: ALT (SGPT) 29 U/L (8-55); AST (SGOT) 58 U/L (5-34); Albumin 2.4 g/dL (3.4-4.8); Alkaline Phosphatase 200 U/L (40-110); Anion Gap 9 mmol/L (10-20); BUN (Urea Nitrogen) 21 mg/dL (8.4-25.7); Bilirubin, Total 2.4 mg/dL (0.2-1.2); CK (CPK) 91 U/L (30-200); Calc. Creatinine Clearance 0 mL/min (70-130); Calcium 7.5 mg/dL (7.8-10.44); Carbon Dioxide 19 mmol/L (23-31); Chloride 111 mmol/L (98-107); Estimated GFR-MDRD Greater than 90; Glucose 99 mg/dL (80-115); Potassium 4.2 mmol/L (3.5-5.1); Protein, Total 5.4 g/dL (5.8-8.1); Sodium 135 mmol/L (136-145)
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
[2020-02-19] MEDS ORDERED: Lidocaine Viscous Sol 2% 15 ml UD Cup ONE (23:04)
[2020-02-19] MEDS ORDERED: Mag-Al 1200 mg/1200 mg/30 ML UDCUP ONE (23:04)
--- NOTE | 2020-02-21 16:10 | EKG ---
Test Reason : Blood Pressure : / mmHG Vent. Rate : 108 BPM Atrial Rate : 108 BPM P-R Int : 160 ms QRS Dur : 074 ms QT Int : 346 ms P-R-T Axes : 018 -19 018 degrees QTc Int : 463 ms Sinus tachycardia Possible Anterolateral infarct , age undetermined Abnormal ECG Confirmed by ERICK COOLEY DO ([id number]), image editor CAROLE CINTRON ([id number]) on 02/21/2020 4:09:13 PM Referred By: Confirmed By:ERICK COOLEY DO
== END 2020-02-19 23:34 | disposition home or self-care (01) ==
LOC: ERS 20:16
DX: K20.9 Esophagitis, unspecified (principal); E11.9 Type 2 diabetes mellitus without complications; E78.5 Hyperlipidemia, unspecified; E78.00 Pure hypercholesterolemia, unspecified; I10 Essential (primary) hypertension; K74.60 Unspecified cirrhosis of liver; Z79.899 Other long term (current) drug therapy
CPT/HCPCS: 71045; 74177; 80053; 82550; 83880; 84484; 85025; 93005; Q9967